=== PATIENT | male | born 1985 | race Asian ===

== ENCOUNTER 2022-07-28 08:51 | Emergency (ER) | payer BC ==
[~2022-07-28] VITALS: Ht 180.3 cm; Wt 75.3 kg
[2022-07-28 08:55] VITALS: BP_SYST 137
[2022-07-28] MEDS ORDERED: IBUPROFEN 800 MG TABLET PO ONE (09:15)
[2022-07-28 09:42] LABS: CALCIUM 8.7 mg/dL (8.4-11.0); CREATININE 1.17 mg/dL (0.55-1.30)
[2022-07-28 09:46] LABS: BASOPHILS % (AUTO) 0.4 % (0.0-2.0); HEMATOCRIT 38.8 % (36-54); HEMOGLOBIN 13.3 g/dL (14.0-18.0); LYMPHOCYTES # (AUTO) 0.4 K/uL (1.0-5.5); LYMPHOCYTES % (AUTO) 6.5 % (20.5-51.5); MEAN CORPUSCULAR HEMOGLOBIN 31 pg (27-31); MEAN CORPUSCULAR HGB CONC 34 % (32-36); MEAN CORPUSCULAR VOLUME 89 fL (79.0-98.0); MONOCYTES # (AUTO) 0.4 K/uL (0.0-1.0); MONOCYTES % (AUTO) 6.3 % (1.7-9.3); NEUTROPHILS % (AUTO) 86.8 % (40.0-70.0); PLATELET COUNT (AUTO) 181 K/uL (130-430); RED BLOOD CELL COUNT(AUTO) 4.36 MIL/uL (4.2-6.2); RED CELL DISTRIBUTION WIDTH 12.2 % (9.0-15.0); WHITE BLOOD COUNT (AUTO) 6.9 K/uL (4.8-10.8)
[2022-07-28 09:47] LABS: ALBUMIN 3.6 g/dL (3.4-4.8); C-REACTIVE PROTEIN QUANT 11.1 mg/dL (0-0.5); TOTAL BILIRUBIN 0.8 mg/dL (0.0-1.0)
[2022-07-28] MEDS ORDERED: LIDOCAINE 1% 10 MG/ML, 20 ML MDV INJ ONE (10:00)
[2022-07-28 10:44] LABS: CSF COLOR COLORLESS (COLORLESS); CSF VOLUME 2.5 mL
[2022-07-28] MEDS ORDERED: IBUP-1971 PO (10:48)
[2022-07-28 11:15] LABS: BILIRUBIN,URINE NEGATIVE (NEGATIVE); BLOOD, URINE NEGATIVE (NEGATIVE); CLARITY/URINE CLEAR (CLEAR); COLOR,URINE YELLOW (YELLOW); GLUCOSE,URINE NEGATIVE (NEGATIVE); KETONES,URINE 3+ (NEGATIVE); LEUKOCYTE ESTERASE ,URINE NEGATIVE (NEGATIVE); NITRITE, URINE NEGATIVE (NEGATIVE); PROTEIN URINE NEGATIVE (NEGATIVE)
[2022-07-28 11:44] LABS: CSF RED BLOOD CELL COUNT #1 530 /uL (0-0); CSF WHITE BLOOD CELL COUNT #1 2 /uL (0-5)
[2022-07-28 11:45] LABS: CSF APPEARANCE SLIGHTLY HAZY (CLEAR)
[2022-07-28 12:01] LABS: CSF PROTEIN 27 mg/dL (15-45)
[2022-07-28 12:02] LABS: CSF GLUCOSE 75 mg/dL (40-70)
== END 2022-07-28 12:28 | disposition home or self-care (01) ==
LOC: SED 08:51
DX: B34.9 Viral infection, unspecified (principal); R50.9 Fever, unspecified; R51.9 Headache, unspecified; J02.9 Acute pharyngitis, unspecified; Z79.899 Other long term (current) drug therapy
CPT/HCPCS: 36415; 70450-TC; 71045; 76376; 80053; 81003; 82947; 83605; 84157; 85025; 85048; 86140; 87070-TC; 87205-TC; 89051-TC; 99285

== ENCOUNTER 2022-07-29 16:07 | Inpatient (IN) | payer BC ==
[~2022-07-29] VITALS: Ht 180.3 cm; Wt 76.5 kg
[2022-07-29 16:07] VITALS: BP_SYST 134
[~2022-07-29 16:07] MED LIST: IBUP-1971 PO
[2022-07-29] MEDS ORDERED: KETOROLAC TROMETHAMINE 30 MG VIAL IVP ONE (16:45)
[2022-07-29] MEDS ORDERED: ONDANSETRON HCL 4 MG/2 ML VIAL IVP ONE (16:45)
[2022-07-29] MEDS ORDERED: NACL 0.9% 1,000 ML IV ONE (16:45)
[2022-07-29] MEDS ORDERED: FIORCET PO ONE (17:00)
[2022-07-29] MEDS ORDERED: EXCEDRIN EXTRA STRENGTH PO ONE (17:15)
[2022-07-29 17:34] LABS: BASOPHILS % (AUTO) 0.2 % (0.0-2.0); HEMATOCRIT 36.4 % (36-54); HEMOGLOBIN 12.4 g/dL (14.0-18.0); LYMPHOCYTES # (AUTO) 0.6 K/uL (1.0-5.5); LYMPHOCYTES % (AUTO) 8.7 % (20.5-51.5); MEAN CORPUSCULAR HEMOGLOBIN 30 pg (27-31); MEAN CORPUSCULAR HGB CONC 34 % (32-36); MEAN CORPUSCULAR VOLUME 89 fL (79.0-98.0); MONOCYTES # (AUTO) 0.7 K/uL (0.0-1.0); MONOCYTES % (AUTO) 9.8 % (1.7-9.3); NEUTROPHILS # (AUTO) 5.4 K/uL (1.8-7.7); NEUTROPHILS % (AUTO) 81.3 % (40.0-70.0); PLATELET COUNT (AUTO) 205 K/uL (130-430); RED BLOOD CELL COUNT(AUTO) 4.09 MIL/uL (4.2-6.2); RED CELL DISTRIBUTION WIDTH 12.4 % (9.0-15.0); WHITE BLOOD COUNT (AUTO) 6.7 K/uL (4.8-10.8)
[2022-07-29 17:41] LABS: CALCIUM 7.8 mg/dL (8.4-11.0); CREATININE 0.95 mg/dL (0.55-1.30)
[2022-07-29] MEDS ORDERED: ONDANSETRON HCL 4 MG/2 ML VIAL IVP PRN (19:30)
[2022-07-29] MEDS: NACL 0.9% 1,000 ML IV SCH ×2 (20:05→23:34)
[2022-07-29] MEDS ORDERED: ZOLPIDEM TARTRATE 5 MG TABLET PO PRN (21:00)
[2022-07-29] MEDS ORDERED: MAGNESIUM SULFATE 50 ML IV PRN (21:00)
[2022-07-29] MEDS ORDERED: MORPHINE 2 MG/ML INJ. SYRINGE IVP PRN ×2 (21:00)
[2022-07-29] MEDS ORDERED: NALOXONE HCL 0.4 MG/ML AMP (NARCAN) IVP PRN ×2 (21:00)
[2022-07-29] MEDS ORDERED: MUPIROCIN 2% TOPICAL OINTMENT 22 GM NS PRN (21:00)
[2022-07-29] MEDS ORDERED: ACETAMINOPHEN 325 MG TABLET PO PRN ×2 (21:00→21:15)
[2022-07-29] MEDS ORDERED: LORazepam 2 MG/ML VIAL IVP PRN (21:00)
[2022-07-29] MEDS ORDERED: POTASSIUM CHLORIDE 20 MEQ TAB.PRT.SR PO PRN (21:00)
[2022-07-29] MEDS ORDERED: DOCUSATE SODIUM 100 MG CAPSULE PO PRN (21:00)
[2022-07-29 21:05] VITALS: BP_SYST 134
[2022-07-29] MEDS ORDERED: POTASSIUM CHLORIDE 20 MEQ TAB.PRT.SR PO ONE ×2 (21:15)
[2022-07-29] MEDS: ONDANSETRON HCL 4 MG/2 ML VIAL IVP PRN (23:34)
[2022-07-30 00:36] VITALS: BP_SYST 130
[2022-07-30] MEDS ORDERED: ZIT250 PO (01:33)
[2022-07-30 05:32] LABS: BASOPHILS % (AUTO) 0.3 % (0.0-2.0); EOSINOPHILS % (AUTO) 0.3 % (0.0-4.0); HEMATOCRIT 35.3 % (36-54); HEMOGLOBIN 12.2 g/dL (14.0-18.0); LYMPHOCYTES % (AUTO) 16.7 % (20.5-51.5); MEAN CORPUSCULAR HEMOGLOBIN 31 pg (27-31); MEAN CORPUSCULAR HGB CONC 35 % (32-36); MEAN CORPUSCULAR VOLUME 89 fL (79.0-98.0); MONOCYTES # (AUTO) 0.7 K/uL (0.0-1.0); MONOCYTES % (AUTO) 11.8 % (1.7-9.3); NEUTROPHILS # (AUTO) 4.2 K/uL (1.8-7.7); NEUTROPHILS % (AUTO) 70.9 % (40.0-70.0); PLATELET COUNT (AUTO) 233 K/uL (130-430); RED BLOOD CELL COUNT(AUTO) 3.98 MIL/uL (4.2-6.2); RED CELL DISTRIBUTION WIDTH 12.6 % (9.0-15.0); WHITE BLOOD COUNT (AUTO) 5.9 K/uL (4.8-10.8)
[2022-07-30 05:52] LABS: CALCIUM 7.8 mg/dL (8.4-11.0); CREATININE 0.85 mg/dL (0.55-1.30)
[2022-07-30] MEDS: NACL 0.9% 1,000 ML IV SCH ×2 (06:58→15:30)
[2022-07-30] MEDS ORDERED: DOXY-244 PO (09:06)
[2022-07-30] MEDS ORDERED: ONDA-8 TL (09:06)
[2022-07-30] MEDS ORDERED: TRAM50TA2 PO (09:06)
[2022-07-30] MEDS ORDERED: MECL-109 PO (09:06)
[2022-07-30 11:31] VITALS: BP_SYST 112
[2022-07-30] MEDS: ONDANSETRON HCL 4 MG/2 ML VIAL IVP PRN (12:22)
[2022-07-30 15:51] VITALS: BP_SYST 139
[2022-07-30 18:07] VITALS: BP_SYST 139
== END 2022-07-30 18:30 | disposition home or self-care (01) | DRG 153 ==
LOC: SED 16:07 → SMU 19:54
PROVIDERS: ADMIT General Practice; ATTEND General Practice
DX: J06.9 Acute upper respiratory infection, unspecified (principal); S31.030A Puncture wound without foreign body of lower back and pelvis without penetration into retroperitoneum, initial encounter; X58.XXXA Exposure to other specified factors, initial encounter; Y93.89 Activity, other specified; Y92.89 Other specified places as the place of occurrence of the external cause; Y99.8 Other external cause status
CPT/HCPCS: 36415; 80048; 83037; 83735; 85025; J1885; J2270; J2405